=== PATIENT | male | born 1975 | race American Indian/Alaskan Native ===

== ENCOUNTER 2017-04-14 06:06 | Day surgery (SDC) | payer OTHER ==
[~2017-04-14 06:06] MED LIST: Dextrose 5%-0.45% NaCl 1,000 ML IV SCH; Sodium Chloride 0.9% 10 ML Syringe FLUSH PRN
[2017-04-14] MEDS ORDERED: fentaNYL 100 MCG/2 ML SDV ONE (06:15)
[2017-04-14] MEDS ORDERED: Midazolam 1 MG/ML 2 ML SDV ONE (06:15)
[2017-04-14] MEDS ORDERED: fentaNYL 100 MCG/2 ML SDV IV ONE ×3 (07:48→14:54)
[2017-04-14] MEDS ORDERED: Midazolam 1 MG/ML 2 ML SDV IV ONE ×3 (07:49→14:54)
[2017-04-14 10:37] VITALS: BP 136/82
--- NOTE | 2017-04-14 10:38 | OR ---
DATE: 04/14/2017 PROCEDURE: Esophagogastroduodenoscopy and multiple pinch biopsies. INSTRUMENT USED: GIF-H180 Olympus video panendoscope. PREMEDICATIONS: No oral topical anesthesia used. Fentanyl 100 mcg intravenous, Versed 2 mg intravenous. The procedure was done under pulse oximetry, BP recording, and filler block inserter remover. INDICATION: Diabetic patient with persistent upper abdominal pain, unexplained, and not responsive to medical measures, on PPI. Esophagogastroduodenoscopy is performed for detection of any active erosive lesions, Sewell's esophagus and/or malignancy also under consideration, H. pylori status to be determined, endoscopic hemostasis therapy if needed. DESCRIPTION OF PROCEDURE: The scope was passed with ease. Adequate visualization of the esophagus was made from proximal to distal areas. No upper esophageal lesions identified. No distal esophageal stricture. No uphill or downhill esophageal varices. No Simi-Gu tear. No evidence of erosive esophagitis by [place] criteria. No esophageal polyp or tumor mass identified. Z-line was seen at around 40 cm distal to the oral verge, configuration consistent with grade 1 by ZAP classification. No proximal gastric varices noted. Gastric fundus examination by retroflexion showed no polypoid lesions. Large amount of solid food material was noted in the stomach limiting visualization of few areas. No gastric ulcer, malignant mass, or vascular ectasia identified. Duodenal bulb showed no ulcer. Visualized second part of the duodenum was unremarkable. Multiple pinch biopsies were taken from the gastric antrum and proximal body and sent for PyloriTek test for H. pylori, and if negative in an hour other tissue is to be sent for histopathology. No bleeding was noted from any of the visualized areas at the completion of examination. Photographs were taken of the duodenal bulb, gastric antrum, fundus, and distal esophagus. IMPRESSION: Gastroparesis diabeticorum. The patient tolerated the procedure well. [facility] /[id number]
--- NOTE | 2017-04-14 10:56 | LETTER ---
04/14/[address] [facility] [address] [place] [address] RE: ELINOR PADRON : [address] Ashton: Mr. Elinor Padron had esophagogastroduodenoscopy done this morning, and he tolerated the procedure well. I herewith send a copy of the endoscopy note and photographs for your review. Thank you. Sincerely. [facility] /[id number]
== END 2017-04-14 09:39 | disposition home or self-care (01) ==
LOC: DL.ENDO 06:06
PROVIDERS: ATTEND Internal Medicine Gastroenterology
DX: K29.50 Unspecified chronic gastritis without bleeding (principal); E11.43 Type 2 diabetes mellitus with diabetic autonomic (poly)neuropathy; K31.84 Gastroparesis; Z87.891 Personal history of nicotine dependence; F12.90 Cannabis use, unspecified, uncomplicated; E78.5 Hyperlipidemia, unspecified; E11.9 Type 2 diabetes mellitus without complications; E66.09 Other obesity due to excess calories; I10 Essential (primary) hypertension; K21.9 Gastro-esophageal reflux disease without esophagitis; Z79.4 Long term (current) use of insulin; Z79.82 Long term (current) use of aspirin; Z79.899 Other long term (current) drug therapy; Z98.890 Other specified postprocedural states
CPT/HCPCS: 43239; 87077; J2250; J3010; J7042

== ENCOUNTER 2023-04-25 06:53 | Day surgery (SDC) | payer OTHER ==
[~2023-04-25 06:53] MED LIST changes: +Sodium Chloride 0.9% 10 ML Syringe FLUSH SCH
[2023-04-25] MEDS ORDERED: Midazolam 1 MG/ML 2 ML SDV ONE (08:29)
[2023-04-25] MEDS ORDERED: fentaNYL 100 MCG/2 ML SDV IVPUSH ONE (08:30)
[2023-04-25] MEDS ORDERED: Midazolam 1 MG/ML 2 ML SDV IVPUSH ONE (08:30)
[2023-04-25] MEDS ORDERED: fentaNYL 100 MCG/2 ML SDV ONE (08:30)
[2023-04-25] MEDS ORDERED: fentaNYL 100 MCG/2 ML SDV IV ONE ×2 (08:34)
[2023-04-25] MEDS ORDERED: Midazolam 1 MG/ML 2 ML SDV IV ONE ×6 (08:35→08:40)
[2023-04-25 09:46] VITALS: PULSE 62
[2023-04-25 10:11] VITALS: BP 119/74
== END 2023-04-25 10:26 | disposition home or self-care (01) ==
LOC: DL.ENDO 06:53
PROVIDERS: ATTEND Internal Medicine Gastroenterology
DX: Z12.11 Encounter for screening for malignant neoplasm of colon (principal); E66.09 Other obesity due to excess calories; E78.5 Hyperlipidemia, unspecified; E11.43 Type 2 diabetes mellitus with diabetic autonomic (poly)neuropathy; K31.84 Gastroparesis; K21.9 Gastro-esophageal reflux disease without esophagitis; Z98.890 Other specified postprocedural states; Z68.41 Body mass index [BMI] 40.0-44.9, adult
CPT/HCPCS: J2250; J3010; J7042